=== PATIENT | male | born 1950 ===

== ENCOUNTER 2018-05-13 03:44 | Inpatient (IN) | payer MEDICARE, OTHER ==
--- NOTE | 2018-05-13 04:15 | C.PDOC ---
History Of Present Illness 67 y/o male pt with hx of HTN presents to the ER c/o dizziness and light headedness for x8 weeks. Associated sx includes left-sided non-radiating chest pain, nausea and vomiting. Pt was seen x6 days ago twice at [facility] and was discharged home. Pt reports he took 325 mg of aspirin. Pt denies fall, trauma, fever, chills, abdominal pain, SOB and other associated sx and complaints at this time. Time Seen by Provider: 05/13/18 04:14 Chief Complaint (Nursing): Dizziness/Lightheaded History Per: Patient History/Exam Limitations: no limitations Onset/Duration Of Symptoms: Days (x8 weeks) Current Symptoms Are (Timing): Still Present Past Medical History Reviewed: Historical Data, Nursing Documentation, Vital Signs Vital Signs: Last Vital Signs Temp 97.6 F 05/13/18 03:45 Pulse 51 L 05/13/18 03:45 Resp 16 05/13/18 03:45 BP 165/85 H 05/13/18 03:45 Pulse Ox 100 05/13/18 03:45 Family History: States: No Known Family Hx - Social History Hx Alcohol Use: No Hx Substance Use: No Review Of Systems Constitutional: Negative for: Fever, Chills, Other (fall and trauma) Cardiovascular: Positive for: Chest Pain, Light Headedness Respiratory: Negative for: Shortness of Breath Gastrointestinal: Positive for: Nausea, Vomiting. Negative for: Abdominal Pain Genitourinary: Negative for: Dysuria, Frequency Musculoskeletal: Negative for: Neck Pain, Back Pain Neurological: Positive for: Dizziness Physical Exam - Physical Exam Appears: Non-toxic, No Acute Distress Skin: Normal Color, Warm, Dry Head: Normacephalic Eye(s): bilateral: Normal Inspection, PERRL, EOMI Nose: Normal Oral Mucosa: Moist Throat: Normal, No Erythema, No Exudate Neck: Trachea Midline, Supple, Other (no meningeal sign; negative kernig's and brudzinski's) Chest: Symmetrical Cardiovascular: Rhythm Regular, No Friction Rub Respiratory: No Rales, No Rhonchi, No Wheezing Gastrointestinal/Abdominal: Normal Exam, Soft, No Tenderness, No Organomegaly, No Mass, No Distention, No Guarding Back: Normal Inspection, No CVA Tenderness, No Vertebral Tenderness Extremity: Bilateral: Atraumatic, Normal Color And Temperature, Normal ROM Pulses: Left Dorsalis Pedis: Normal (2+), Right Dorsalis Pedis: Normal (2+) Neurological/Psych: Oriented x3, Normal Speech, Normal Cognition, Normal Cranial Nerves, No Cerebellar Signs, Normal Motor ED Course And Treatment - Laboratory Results Result Diagrams: 05/13/18 04:31 05/13/18 04:31 O2 Sat by Pulse Oximetry: 100 (RA) Pulse Ox Interpretation: Normal Medical Decision Making Medical Decision Makin yr old male p/w dizziness x8d, constant, along with left sided chest pain. Pt was seen at x2 [place] hospitals and d/c. He notes after being d/c continued n/v. No abdominal pain. Non-ttp on exam. No abnl neurological signs on exam but given recurrent n/v and dizziness will likely require imaging. plans: -- chem labs -- blood work -- CXR -- CT head -- IV fluids -- antivert -- reglan 53, NSR, no stemi 0620 labs largely unremarkable trop unremarkable pending CT paged DR. Senior for obs as pt still notes feeling dizzy despite meclizine and fluids. 0640 appreciate consult w/ Dr. Senior: to admit to his service Pt in NAD, agreeable to plan CTH unremarkable Disposition - Disposition Disposition Time: 06:39 Condition: GOOD Forms: [facility] (Slovenian) - Clinical Impression Clinical Impression: Dizziness - Scribe Statement The provider has reviewed the documentation as recorded by the Scribnicole Potter Do Provider Attestation: All medical record entries made by the Scribe were at my direction and personally dictated by me. I have reviewed the chart and agree that the record accurately reflects my personal performance of the history, physical exam, medical decision making, and the department course for this patient. I have also personally directed, reviewed, and agree with the discharge instructions and disposition.
[2018-05-13 04:36] LABS: BASO % 0.3 % (0.0-2.0); EOS % 0.5 % (0.0-4.0); HEMOGLOBIN 13.8 g/dL (12.0-18.0); LYMPH # 1.3 K/uL (1.0-4.3); MEAN CELL VOLUME 93.2 fL (80.0-94.0); MEAN CORPUSCULAR HEMOGLOBIN 31.2 pg (27.0-31.0); MEAN CORPUSCULAR HGB CONC 33.5 g/dL (33.0-37.0); MEAN PLATELET VOLUME 10.6 fL (7.2-11.7); MONO # 0.5 K/uL (0.0-0.8); MONO % 7.5 % (0.0-10.0); NEUT # 4.6 K/uL (1.8-7.0); NEUT % 71.7 % (50.0-75.0); RBC 4.44 Mil/uL (4.40-5.90); RED CELL DISTRIBUTION WIDTH 12.7 % (11.5-14.5); WHITE BLOOD COUNT 6.4 K/uL (4.8-10.8)
[2018-05-13 04:46] LABS: ALB/GLOB RATIO 1.5 (1.0-2.1); ALBUMIN 4.3 g/dL (3.5-5.0); ALT/SGPT 22 U/L (21-72); AST/SGOT 23 U/L (17-59); BLOOD UREA NITROGEN 17 mg/dL (9-20); CALCIUM 9.7 mg/dl (8.6-10.4); GFR NON-AFRICAN AMERICAN > 60
[2018-05-13] MEDS ORDERED: Sodium Chloride 0.9% 1,000 ML ONE (05:42)
[2018-05-13] MEDS: Sodium Chloride 0.9% 1,000 ML IV SCH ×2 (05:54→15:30)
--- NOTE | 2018-05-13 08:36 | CT ---
Date of service: 05/13/2018 PROCEDURE: CT HEAD WITHOUT CONTRAST. HISTORY: dizzy COMPARISON: None available. TECHNIQUE: Axial computed tomography images were obtained through the head/brain without intravenous contrast. Radiation dose: Total exam DLP = 1030.55 mGy-cm. This CT exam was performed using one or more of the following dose reduction techniques: Automated exposure control, adjustment of the mA and/or kV according to patient size, and/or use of iterative reconstruction technique. FINDINGS: HEMORRHAGE: No intracranial hemorrhage. BRAIN: No mass effect or edema. Mild white matter changes likely represent chronic microvascular ischemic disease. VENTRICLES: Unremarkable. No hydrocephalus. CALVARIUM: Unremarkable. PARANASAL SINUSES: There is a complete opacification of the left frontal sinus associated with focal defect in the anterior aspect of the frontal bone. Mucosal thickening is also noted in the ethmoids sinuses. MASTOID AIR CELLS: Unremarkable as visualized. No inflammatory changes. OTHER FINDINGS: None. IMPRESSION: Complete opacification of the left frontal sinus associated with focal defect in the anterior aspect of the frontal bone. Daily for sinusitis. No evidence of acute intracranial hemorrhage mass effect or midline shift. Preliminary report was submitted by [facility] Radiology contains concordant findings.
--- NOTE | 2018-05-13 11:10 | RAD ---
Date of service: 05/13/2018 HISTORY: cp COMPARISON: No prior similar study available for comparison TECHNIQUE: 1 view obtained. FINDINGS: LUNGS: Heterogeneous opacity at the lung apices may represent scar tissue from prior infection or inflammatory process. Hyperinflation of the lungs is noted. PLEURA: No significant pleural effusion identified, no pneumothorax apparent. CARDIOVASCULAR: No aortic atherosclerotic calcification present. Normal cardiac size. No pulmonary vascular congestion. OSSEOUS STRUCTURES: No significant abnormalities. VISUALIZED UPPER ABDOMEN: Normal. OTHER FINDINGS: None. IMPRESSION: Heterogeneous opacity at the lung apices likely represents scar tissue. Mild emphysema.
[2018-05-13 15:59] VITALS: RESP 20
[2018-05-14] MEDS: Sodium Chloride 0.9% 1,000 ML IV SCH ×3 (00:15→10:52)
--- NOTE | 2018-05-14 18:07 | HP ---
HISTORY OF PRESENT ILLNESS: A 67-year old male history of ____ disease, chief complaint dizzness. Patient came to the ER, advised admission. PHYSICAL EXAMINATION: GENERAL: The patient is awake, alert and oriented. VITAL SIGNS: Temperature 98, pulse 90. HEENT: Within normal limits. NECK: Supple. CHEST: Symmetrical. HEART: Regular. ABDOMEN: Soft. EXTREMITIES: No edema. IMPRESSION AND PLAN: The patient bed rest. Neuro check. Filipe Senior MD
[2018-05-15] MEDS: Sodium Chloride 0.9% 1,000 ML IV SCH ×2 (03:27→09:03)
--- NOTE | 2018-05-15 07:08 | CP.PCM.PN ---
Subjective - Date & Time of Evaluation Date of Evaluation: 05/15/18 Time of Evaluation: 07:08 - Subjective Subjective: Medicine Progress Note - Dr Senior's service Patient is a 67 year old male with past medical history of metastatic prostate cancer, DM and hypertension who presented to the emergency department for intractable dizziness. Patient states that the dizziness started 9 days ago and has been associated with multiple episodes of nausea and vomiting. He was seen the in the emergency department twice last week for the same complaint. He also admits to decreased hearing in the left ear. He denies any falls but states that he feels unsteady. Yesterday he reported that the dizziness had improved however today he says that it returned. Allergies: Penicillin Medications: Metformin 1000mg PO BID, Bicalutamide 50mg PO daily Medical History: DM, HTN, Prostate CA Surgical History: Bilateral inguinal hernia repair Social History: Former smoker quit 3 months ago, denies alcohol, tobacco use Family History: Mother - vertigo Objective - Vital Signs/Intake and Output Vital Signs (last 24 hours): Temp Pulse Resp BP Pulse Ox 98.3 F 59 L 20 150/80 99 05/15/18 00:00 05/15/18 00:00 05/15/18 00:00 05/15/18 00:00 05/15/18 00:00 Intake and Output: 05/15/18 05/15/18 06:59 18:59 Intake Total 990 Balance 990 - Medications Medications: Current Medications Sodium Chloride (Sodium Chloride 0.9%) 1,000 mls @ 100 mls/hr IV .Q10H [facility] Last Admin: 05/15/18 03:27 Dose: 100 mls/hr - Labs Labs: 05/13/18 04:31 05/13/18 04:31 - Constitutional Appears: Non-toxic, No Acute Distress - Head Exam Head Exam: ATRAUMATIC, NORMAL INSPECTION, NORMOCEPHALIC - Eye Exam Eye Exam: EOMI, Normal appearance - ENT Exam ENT Exam: Mucous Membranes Moist - Respiratory Exam Respiratory Exam: Clear to Ausculation Bilateral, NORMAL BREATHING PATTERN. absent: Decreased Breath Sounds, Rales, Rhonchi, Wheezes - Cardiovascular Exam Cardiovascular Exam: REGULAR RHYTHM, +S1, +S2 - GI/Abdominal Exam GI & Abdominal Exam: Soft. absent: Guarding, Rigid, Tenderness - Extremities Exam Extremities Exam: Normal Inspection. absent: Calf Tenderness - Neurological Exam Neurological Exam: Alert, Awake, Oriented x3 - Psychiatric Exam Psychiatric exam: Normal Affect, Normal Mood - Skin Skin Exam: Dry, Normal Color, Warm Assessment and Plan - Assessment and Plan (Free Text) Assessment: Patient is a 67 year old male with past medical history of metastatic prostate cancer, DM, HTN who presented with intractable dizziness with associated nausea and vomiting. Dizziness, r/o cardioneurogenic causes -Stable afebrile -Troponin negative x 1 -Carotid duplex and echocardiogram ordered -Orthostatics were positive, could be due to prostate medication -Continue IV fluid hydration -Continue physical therapy -Patient will need outpatient ENT evaluation Imaging: CT head: Complete opacification of the left frontal sinus associated with focal defect in the anterior aspect of the frontal bone. Daily for sinusitis. No evidence of acute intracranial hemorrhage mass effect or midline shift. History of Hypertension -Orthostatics were positive -Continue 1/2 NS at 100cc/hr -Continue to monitor DM -Metformin on hold for now -Monitor accuchecks GI/DVT ppx: No GI ppx indicated at this time Lovenox 40mg SC daily DISPO: Patient with unsteady gait 2/2 dizziness. Continue IV fluid hydration and PT recommendations. Likely DC home tomorrow with ENT follow up. Plan discussed with Dr Parrish Fernandes DO PGY-2
[2018-05-15] MEDS: Sodium Chloride 0.45% 1,000 ML IV SCH (14:40)
[2018-05-15] MEDS: (Novolog) Insulin Aspart, Recombinant 100 u/ml 10 ml vial SC SCH (22:12)
[2018-05-16 07:25] LABS: BASO % 0.4 % (0.0-2.0); EOS # 0.2 K/uL (0.0-0.7); EOS % 3.3 % (0.0-4.0); HEMOGLOBIN 13.8 g/dL (12.0-18.0); LYMPH # 1.7 K/uL (1.0-4.3); LYMPH % 30.3 % (20.0-40.0); MEAN CELL VOLUME 92.4 fL (80.0-94.0); MEAN CORPUSCULAR HEMOGLOBIN 31.9 pg (27.0-31.0); MEAN CORPUSCULAR HGB CONC 34.5 g/dL (33.0-37.0); MEAN PLATELET VOLUME 11.1 fL (7.2-11.7); MONO # 0.6 K/uL (0.0-0.8); MONO % 10.4 % (0.0-10.0); NEUT # 3.1 K/uL (1.8-7.0); NEUT % 55.6 % (50.0-75.0); NRBC % 0.1 % (0.0-2.0); RBC 4.32 Mil/uL (4.40-5.90); RED CELL DISTRIBUTION WIDTH 12.8 % (11.5-14.5); WHITE BLOOD COUNT 5.6 K/uL (4.8-10.8)
[2018-05-16 08:07] LABS: ALB/GLOB RATIO 1.6 (1.0-2.1); ALBUMIN 3.9 g/dL (3.5-5.0); ALT/SGPT 13 U/L (21-72); AST/SGOT 28 U/L (17-59); BLOOD UREA NITROGEN 10 mg/dL (9-20); CALCIUM 9.1 mg/dl (8.6-10.4); GFR NON-AFRICAN AMERICAN > 60; HDL CHOLESTEROL 61 mg/dL (30-70)
[2018-05-16 08:18] LABS: LDL CHOLESTEROL 90 mg/dL (0-129)
[2018-05-16] MEDS: (Novolog) Insulin Aspart, Recombinant 100 u/ml 10 ml vial SC SCH ×4 (08:20→22:00)
[2018-05-16] MEDS: Enoxaparin 40 mg Syringe SC SCH (09:56)
[2018-05-16] MEDS ORDERED: Pneumococcal 23-Valent Vaccine IM ONE (10:00)
--- NOTE | 2018-05-16 11:14 | VASCLAB ---
Date of service: 05/15/2018 PROCEDURE: Carotid Duplex Exam. HISTORY: dizziness COMPARISON: None available. TECHNIQUE: Grayscale and duplex Doppler evaluation of the cervical carotid and vertebral arteries were performed. The common carotid, carotid bifurcations and cervical Internal Carotid Artery (ICA) and proximal External Carotid Artery (ECA) were evaluated. The vertebral arteries were evaluated for gross patency and flow direction. Report prepared by Paul Dennison, BS, RVT FINDINGS: RIGHT CAROTID ARTERIES: 1. Common Carotid Artery: No significant focal plaque formation of the right common carotid artery. Maximum Peak Systolic velocity: 72 cm/sec: End-diastolic velocity 17 cm/sec. 2. Carotid Bifurcation: plaque formation. Maximum Peak Systolic velocity: 60 cm/sec: End-diastolic velocity 15 cm/sec. 3. Internal Carotid Artery: Plaque description: 3.1. Proximal Segment: Peak systolic velocity 60 cm/sec: End-diastolic velocity 16 cm/sec - % stenosis 0-15% 3.2. Middle Segment: Peak systolic velocity 44 cm/sec: End-diastolic velocity 15 cm/sec - % stenosis 0-15% 3.3. Distal Segment: Peak systolic velocity 58 cm/sec: End-diastolic velocity 20 cm/sec - % stenosis 0-15% 4. External Carotid Artery: No significant focal plaque formation. Peak systolic velocity 81 cm/sec 5. ICA/CCA Ratio: 0.8 LEFT CAROTID ARTERIES: 1. Common Carotid Artery: No significant focal plaque formation of the left common carotid artery. Maximum Peak Systolic velocity: 75 cm/sec: End-diastolic velocity 15 cm/sec. 2. Carotid Bifurcation: plaque formation. Maximum Peak Systolic velocity: 73 cm/sec: End-diastolic velocity 16 cm/sec. 3. Internal Carotid Artery: Plaque description: 3.1. Proximal Segment: Peak systolic velocity 53 cm/sec: End-diastolic velocity 15 cm/sec - % stenosis 0-15% 3.2. Middle Segment: Peak systolic velocity 75 cm/sec: End-diastolic velocity 26 cm/sec - % stenosis 0-15% 3.3. Distal Segment: Peak systolic velocity 78 cm/sec: End-diastolic velocity 28 cm/sec - % stenosis 0-15% 4. External Carotid Artery: No significant focal plaque formation. Peak systolic velocity 90 cm/sec 5. ICA/CCA Ratio: 1.0 VERTEBRAL ARTERIES: 1. Right Vertebral Artery: The right vertebral artery flow direction is antegrade. 2. Left Vertebral Artery: The left vertebral artery flow direction is antegrade. OTHER FINDINGS: 1. Right Brachial Blood pressure: 130 mmHg. 2. Left Brachial Blood pressure: 134 mmHg. 3. No atherosclerotic calcification present IMPRESSION: RIGHT: Duplex scan does not suggest hemodynamically significant stenosis of the right extracranial carotid arteries. LEFT: Duplex scan does not suggest hemodynamically significant stenosis of the left extracranial carotid arteries.
[2018-05-16] MEDS: Sodium Chloride 0.45% 1,000 ML IV SCH (11:57)
--- NOTE | 2018-05-16 13:21 | CP.PCM.PN ---
Subjective - Date & Time of Evaluation Date of Evaluation: 05/16/18 Time of Evaluation: 13:18 - Subjective Subjective: Patient seen and examined at bedside. NO overnight events reported. Patient still reports Dizziness and nausea. He denies any chest pain, SOB, abdominal pain, changes in bowel habits or urinary symptoms. Per Nurse, patient stated in the afternoon if he could get an injection to . When patient was questioned regarding this he stated that he was joking and denied any suicidal or homicidal ideation. Objective - Vital Signs/Intake and Output Vital Signs (last 24 hours): Temp Pulse Resp BP Pulse Ox 97.5 F L 60 20 175/79 H 98 05/16/18 07:57 05/16/18 07:57 05/16/18 07:57 05/16/18 07:57 05/16/18 12:20 Intake and Output: 05/16/18 05/16/18 06:59 18:59 Intake Total 1100 1000 Output Total 700 Balance 400 1000 - Medications Medications: Current Medications Enoxaparin Sodium (Lovenox) 40 mg SC DAILY [facility] Last Admin: 05/16/18 09:56 Dose: 40 mg Sodium Chloride (Sodium Chloride 0.45%) 1,000 mls @ 100 mls/hr IV .Q10H [facility] Last Admin: 05/16/18 11:57 Dose: 100 mls/hr Insulin Aspart (Novolog) 0 unit SC ACHS [facility]; Protocol Last Admin: 05/16/18 11:55 Dose: 2 units - Labs Labs: 05/16/18 07:04 05/16/18 07:04 - Constitutional Appears: Non-toxic, No Acute Distress - Head Exam Head Exam: ATRAUMATIC, NORMAL INSPECTION, NORMOCEPHALIC - Eye Exam Eye Exam: EOMI, Normal appearance. absent: Scleral icterus - ENT Exam ENT Exam: Mucous Membranes Moist - Respiratory Exam Respiratory Exam: Clear to Ausculation Bilateral - Cardiovascular Exam Cardiovascular Exam: RRR, +S1, +S2 - GI/Abdominal Exam GI & Abdominal Exam: Soft, Normal Bowel Sounds. absent: Tenderness - Extremities Exam Extremities Exam: Normal Capillary Refill. absent: Pedal Edema - Neurological Exam Neurological Exam: Alert, Awake, Oriented x3 - Psychiatric Exam Psychiatric exam: Anxious, Depressed (D), Normal Affect. absent: Homicidal Ideation, Suicidal Ideation - Skin Skin Exam: Normal Color, Warm Assessment and Plan - Assessment and Plan (Free Text) Assessment: Patient is a 67 year old male with past medical history of metastatic prostate cancer, DM, HTN who presented with intractable dizziness with associated nausea and vomiting. Plan: Dizziness, r/o cardioneurogenic causes CT head: Complete opacification of the left frontal sinus associated with focal defect in the anterior aspect of the frontal bone. Daily for sinusitis. No evidence of acute intracranial hemorrhage mass effect or midline shift. -Stable afebrile -Troponin negative x 1 -Carotid duplex and echocardiogram ordered -Orthostatics were positive, could be due to prostate medication -Continue IV fluid hydration -Continue physical therapy -Patient will need outpatient ENT evaluation Mgmt: Start Meclizine 25mg PO Daily Start Trimethobenzamide 300mg PO Q8 PRN. Zofran and Reglan given once today with miniminal Relief. Sinusitis (Frontal) CT head: Complete opacification of the left frontal sinus associated with focal defect in the anterior aspect of the frontal bone. Daily for sinusitis. No evidence of acute intracranial hemorrhage mass effect or midline shift. Mgmt: Start Fluticasone 1 spray in each nostril Daily Suicidal ideation Per Nurse, patient stated that he wanted an injection to kill himself. Per nurse, he sounded serious. When I asked the patient he stated he was joking -Psychiatry Consult (Dr. Bradshaw), f/u Recs. History of Hypertension -Orthostatics were positive -Continue 1/2 NS at 100cc/hr -Continue to monitor DM -Metformin on hold for now -Monitor accuchecks -Samantha GI/DVT ppx: No GI ppx indicated at this time Lovenox 40mg SC daily DISPO: Patient with unsteady gait 2/2 dizziness. Continue IV fluid hydration and PT recommendations. Patient was to be discharged home today but asked for an injection to . Psych consult put it. Patient to follow up with ENT when DC'd. Plan discussed with Dr Parrish Blevins DO PGY-2
[2018-05-16] MEDS: Fluticasone Nasal 50 mcg/Spray NAS SCH (17:12)
--- NOTE | 2018-05-16 18:46 | CARD ---
APPROVED REPORT Date of service: 05/16/2018 EXAM: Two-dimensional and M-mode echocardiogram with Doppler, color Doppler with saline bubble. Other Information Quality : GoodRhythm : INDICATION Dizziness and Vertigo Echo Enhancing Agent Indication: Rule Out Septal Defect Agent/Amount Used: Agitated Saline RISK FACTORS Hypertension 2D DIMENSIONS IVSd0.8 (0.7-1.1cm)LVDd4.5 (3.9-5.9cm) PWd0.9 (0.7-1.1cm)LA [id number] (18-58mL) LVDs2.8 (2.5-4.0cm)FS (%) 37.7 % LVEF (%)68.0 (>50%)LVEF (John's)61.22 % IVC0.00 cm M-Mode DIMENSIONS Left Atrium (MM)4.01 (2.5-4.0cm)Aortic Root3.25 (2.2-3.7cm) Aortic Cusp Exc.2.16 (1.5-2.0cm) Mitral Valve MV E Hfapghsd78.9cm/sMV A Vzceqfba54.5cm/sE/A ratio1.1 TEAA676.94 cm/s TDI Lateral E' Peak V9.06cm/sMedial E' Peak V6.09cm/sE/Lateral E'9.2 E/Medial E'13.6 Tricuspid Valve TR Peak Botrjkbb260wd/sTR Peak Gr.[id number] LEFT VENTRICLE The left ventricle is normal size. There is normal left ventricular wall thickness. The left ventricular function is normal. The left ventricular ejection fraction is within the normal range. 61% No regional wall motion abnormalities noted. The left ventricular diastolic function is normal. No left ventricle thrombus noted on this study. There is no ventricular septal defect visualized. There is no left ventricular aneurysm. There is no mass noted in the left ventricle. RIGHT VENTRICLE The right ventricle is normal size. There is normal right ventricular wall thickness. The right ventricular systolic function is normal. ATRIA The left atrium size is normal. The right atrium size is normal. The interatrial septum is intact with no evidence for an atrial septal defect. AORTIC VALVE The aortic valve is normal in structure and function. No aortic regurgitation is present. There is no aortic valvular stenosis. There is no aortic valvular vegetation. MITRAL VALVE The mitral valve is normal in structure and function. There is no evidence of mitral valve prolapse. There is no mitral valve stenosis. There is mild mitral valve regurgitation noted. TRICUSPID VALVE The tricuspid valve is normal in structure and function. There is no tricuspid valve regurgitation noted. There is no tricuspid valve prolapse or vegetation. There is no tricuspid valve stenosis. PULMONIC VALVE The pulmonary valve is normal in structure and function. There is no pulmonic valvular regurgitation. There is no pulmonic valvular stenosis. GREAT VESSELS The aortic root is normal in size. The ascending aorta is normal in size. The pulmonary artery is normal. The IVC is normal in size and collapses >50% with inspiration. PERICARDIAL EFFUSION The pericardium appears normal. There is no pleural effusion. <Conclusion> Normal Study
[2018-05-17 07:00] LABS: BASO % 0.5 % (0.0-2.0); EOS # 0.2 K/uL (0.0-0.7); EOS % 4.2 % (0.0-4.0); LYMPH # 2.2 K/uL (1.0-4.3); LYMPH % 38.5 % (20.0-40.0); MEAN CELL VOLUME 92.3 fL (80.0-94.0); MEAN CORPUSCULAR HGB CONC 33.6 g/dL (33.0-37.0); MEAN PLATELET VOLUME 11.2 fL (7.2-11.7); MONO # 0.5 K/uL (0.0-0.8); MONO % 9.8 % (0.0-10.0); NEUT # 2.6 K/uL (1.8-7.0); NRBC % 0.1 % (0.0-2.0); RBC 4.52 Mil/uL (4.40-5.90); RED CELL DISTRIBUTION WIDTH 13.2 % (11.5-14.5); WHITE BLOOD COUNT 5.6 K/uL (4.8-10.8)
[2018-05-17] MEDS: Sodium Chloride 0.45% 1,000 ML IV SCH ×3 (07:02→16:00)
[2018-05-17 07:39] LABS: ALB/GLOB RATIO 1.5 (1.0-2.1); ALBUMIN 3.9 g/dL (3.5-5.0); ALT/SGPT 10 U/L (21-72); AST/SGOT 23 U/L (17-59); BLOOD UREA NITROGEN 12 mg/dL (9-20); CALCIUM 9.4 mg/dl (8.6-10.4); GFR NON-AFRICAN AMERICAN > 60
--- NOTE | 2018-05-17 08:28 | CP.PCM.PN ---
Subjective - Date & Time of Evaluation Date of Evaluation: 05/17/18 Time of Evaluation: 08:28 - Subjective Subjective: Medicine Progress Note - Dr Senior's service Patient seen and examined at bedside. Per nursing no acute events overnight. Patient is doing well, states that dizziness has resolved. He is ambulating and tolerating diet. States that he is not suicidal. Offers no other complaints at this time. Objective - Vital Signs/Intake and Output Vital Signs (last 24 hours): Temp Pulse Resp BP Pulse Ox 98.1 F 60 20 129/79 96 05/17/18 07:00 05/17/18 07:00 05/17/18 07:00 05/17/18 07:00 05/17/18 07:00 Intake and Output: 05/17/18 05/17/18 06:59 18:59 Intake Total 1100 400 Output Total 600 Balance 500 400 - Medications Medications: Current Medications Enoxaparin Sodium (Lovenox) 40 mg SC DAILY [facility] Last Admin: 05/16/18 09:56 Dose: 40 mg Fluticasone Propionate (Flonase) 1 spr ETHAN DAILY [facility] Last Admin: 05/16/18 17:12 Dose: 1 spr Sodium Chloride (Sodium Chloride 0.45%) 1,000 mls @ 100 mls/hr IV .Q10H [facility] Last Admin: 05/17/18 07:03 Dose: 100 mls/hr Insulin Aspart (Novolog) 0 unit SC ACHS [facility]; Protocol Last Admin: 05/16/18 16:30 Dose: Not Given Meclizine HCl (Antivert) 25 mg PO DAILY [facility] Last Admin: 05/16/18 17:12 Dose: 25 mg Ondansetron HCl (Zofran Odt) 4 mg PO Q6H PRN PRN Reason: Nausea/Vomiting - Labs Labs: 05/17/18 06:30 05/17/18 06:30 - Additional Findings Additional findings: - Constitutional Appears: Non-toxic, No Acute Distress - Head Exam Head Exam: ATRAUMATIC, NORMAL INSPECTION, NORMOCEPHALIC - Eye Exam Eye Exam: EOMI, Normal appearance. absent: Scleral icterus - ENT Exam ENT Exam: Mucous Membranes Moist - Respiratory Exam Respiratory Exam: Clear to Ausculation Bilateral - Cardiovascular Exam Cardiovascular Exam: RRR, +S1, +S2 - GI/Abdominal Exam GI & Abdominal Exam: Soft, Normal Bowel Sounds. absent: Tenderness - Extremities Exam Extremities Exam: Normal Capillary Refill. absent: Pedal Edema - Neurological Exam Neurological Exam: Alert, Awake, Oriented x3 - Psychiatric Exam Psychiatric exam: Normal Affect. absent: Homicidal Ideation, Suicidal Ideation - Skin Skin Exam: Normal Color, Warm Assessment and Plan - Assessment and Plan (Free Text) Assessment: Patient is a 67 year old male with past medical history of metastatic prostate cancer, DM, HTN who presented with intractable dizziness with associated nausea and vomiting. Plan: Dizziness, r/o cardioneurogenic causes CT head: Complete opacification of the left frontal sinus associated with focal defect in the anterior aspect of the frontal bone. Daily for sinusitis. No evidence of acute intracranial hemorrhage mass effect or midline shift. -Stable afebrile -Troponin negative x 1 -Carotid duplex and echocardiogram ordered -Orthostatics were positive, could be due to prostate medication -Continue physical therapy -Patient will need outpatient ENT evaluation -Continue Meclizine 25mg PO daily Sinusitis (Frontal) CT head: Complete opacification of the left frontal sinus associated with focal defect in the anterior aspect of the frontal bone. Daily for sinusitis. No evidence of acute intracranial hemorrhage mass effect or midline shift. -Continue Fluticasone 1 spray in each nostril Daily Suicidal ideation Per Nurse, patient stated that he wanted an injection to kill himself. Per nurse, he sounded serious. When I asked the patient he stated he was joking -Psychiatry Consult (Dr. Bradshaw), f/u Recs. History of Hypertension -Orthostatics were positive -Continue 1/2 NS at 100cc/hr -Continue to monitor DM -Metformin on hold for now -Monitor accuchecks -ISS GI/DVT ppx: No GI ppx indicated at this time Lovenox 40mg SC daily DISPO: Patient is medically stable for discharge home. Awaiting psych clearance. Patient to follow up with ENT when DC'd. Plan discussed with Dr Parrish Fernandes DO PGY-2
[2018-05-17] MEDS: (Novolog) Insulin Aspart, Recombinant 100 u/ml 10 ml vial SC SCH ×5 (10:01→21:33)
[2018-05-17] MEDS: Fluticasone Nasal 50 mcg/Spray NAS SCH (10:26)
[2018-05-17] MEDS: Enoxaparin 40 mg Syringe SC SCH (10:26)
--- NOTE | 2018-05-17 13:59 | PCM.PSYCH ---
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 Patient admitted to the hospital on 05/13 for intractable dizziness with associated nausea and vomiting. Patient is consulted for saying to nurse " do you have an injection to " yesterday. Patient states that he has never attempted suicide in the past, or has not seen a psychiatrist in the past for any psychiatric issues, or takes psych meds. Patient has never been hospitalized for psych issues. Patient denies suicidal or homicidal ideation at this time. Patient denies feeling down, patient admits to having difficulty sleeping, but denies any diminished concentration, appetite or interest in doing his daily activities. Denies visual or auditory hallucinations, or any racing thoughts. Patient denies current alcohol, tobacco or drug use. Patient used to smoke about 3-4 cigarettes daily, quitted about 4 months ago when he was diagnosed of prostate cancer. Patient was superficial cooperative but guarded about the details. He appeared depressed, isolated and withdrawn. He was irritable and agitated throughout the interview. He demanded to be discharged, and refused any suicidal ideation. Pmhx: Prostate CA, DM, HTN Shx: former smoker, quitted 4 months ago, denies alcohol or drug use Psych hx: denies Psych fam hx: denies Current Medications: Active Medications Generic Name Dose Route Start Last Admin Trade Name Freq PRN Reason Stop Dose Admin Enoxaparin Sodium 40 mg 05/16/18 10:00 05/17/18 10:26 Lovenox SC 40 mg DAILY MACIE Administration Fluticasone Propionate 1 spr 05/16/18 14:00 05/17/18 10:26 Flonase ETHAN 1 spr DAILY MACIE Administration Sodium Chloride 1,000 mls @ 100 mls/hr 05/15/18 14:00 05/17/18 07:03 Sodium Chloride 0.45% IV 100 mls/hr .Q10H MACIE Administration Insulin Aspart 0 unit 05/15/18 22:00 05/17/18 12:38 Novolog SC 1 units ACHS MACIE Administration Protocol Meclizine HCl 25 mg 05/16/18 14:00 05/17/18 10:26 Antivert PO 25 mg DAILY MACIE Administration Ondansetron HCl 4 mg 05/16/18 15:30 05/17/18 10:26 Zofran Odt PO 4 mg Q6H PRN Administration Nausea/Vomiting Past Psychiatric History - Past Psychiatric History Pertinent Medical Hx (Current Medical&Sleep Prob, Allergies): Allergies Allergy/AdvReac Type Severity Reaction Status Date / Time Penicillins Allergy Verified 05/13/18 03:52 Ondansetron HCl [Zofran] 4 mg PO Q6H PRN #28 tablet 05/16/18 amLODIPine [Norvasc] 5 mg PO DAILY #14 tab 05/16/18 Fluticasone Propionate [Flonase] 1 spr ETHAN DAILY #1 bottle 05/17/18 Review of Systems - Psychiatric Psychiatric: Abnormal Sleep Pattern, Irritability. absent: Anhedonia, Anxiety, Auditory Hallucinations, Change in Appetite, Depression, Difficulty Concentrating, Hallucinations, Homicidal Ideation, Suicidal Ideation, Visual Hallucinations Mental Status Examination - Personal Presentation Personal Presentation: Looks stated age - Affect Affect: Constricted, Depressed - Motor Activity Motor Activity: Calm - Reliability in Providing Information Reliability in Providing Information: Fair - Speech Speech: Organized - Mood Mood: Depressed - Formal Thought Process Formal Thought Process: No Impairment - Cognitive Functions Orientation: Person, Place, Situation, Time Sensorium: Alert Attention/Concentration: Attentive Abstract Thinking: [place] DSM 5 DX - DSM 5 DSM 5 Diagnosis: Major depressive disorder w/o Psychotic issues - Recommended/Plan of Treatment Treatment Recommendations and Plan of Treatment: Patient offered medication for depression, however patient refuses request for [facility] screening pending - will follow up evaluation medication as needed for sleep aftercare discussed Plan d/w Dr Augustine uLis, PGY-1
[2018-05-17 20:22] LABS: BARBITURATES, UR NEGATIVE (NEGATIVE); BENZODIAZEPINES, UR NEGATIVE (NEGATIVE); OPIATES, UR NEGATIVE (NEGATIVE); PHENCYCLIDINE, UR NEGATIVE (NEGATIVE)
[2018-05-18 02:35] LABS: URINE BACTERIA RARE (<OCC); URINE BILIRUBIN NEGATIVE (NEGATIVE); URINE BLOOD NEGATIVE (NEGATIVE); URINE CLARITY Clear (Clear); URINE COLOR Yellow (YELLOW); URINE GLUCOSE (UA) 3+ mg/dL (Normal); URINE LEUKOCYTE ESTERASE NEG Leu/uL (Negative); URINE PROTEIN NEGATIVE (NEGATIVE)
[2018-05-18] MEDS: Sodium Chloride 0.45% 1,000 ML IV SCH ×2 (04:20→13:00)
[2018-05-18 06:25] LABS: BASO % 0.7 % (0.0-2.0); EOS # 0.4 K/uL (0.0-0.7); HEMOGLOBIN 14.2 g/dL (12.0-18.0); LYMPH # 2.8 K/uL (1.0-4.3); LYMPH % 40.2 % (20.0-40.0); MEAN CELL VOLUME 92.6 fL (80.0-94.0); MEAN CORPUSCULAR HEMOGLOBIN 31.7 pg (27.0-31.0); MEAN CORPUSCULAR HGB CONC 34.2 g/dL (33.0-37.0); MEAN PLATELET VOLUME 10.8 fL (7.2-11.7); MONO # 0.8 K/uL (0.0-0.8); NEUT # 2.9 K/uL (1.8-7.0); NEUT % 42.1 % (50.0-75.0); NRBC % 0.1 % (0.0-2.0); RBC 4.48 Mil/uL (4.40-5.90); RED CELL DISTRIBUTION WIDTH 12.9 % (11.5-14.5); WHITE BLOOD COUNT 6.9 K/uL (4.8-10.8)
[2018-05-18 06:38] LABS: ALB/GLOB RATIO 1.6 (1.0-2.1); ALT/SGPT 17 U/L (21-72); AST/SGOT 18 U/L (17-59); BLOOD UREA NITROGEN 15 mg/dL (9-20); CALCIUM 9.5 mg/dl (8.6-10.4); GFR NON-AFRICAN AMERICAN > 60
[2018-05-18 07:52] VITALS: BP 140/86; PULSE 80; TEMP 98; O2SAT 98
[2018-05-18] MEDS: (Novolog) Insulin Aspart, Recombinant 100 u/ml 10 ml vial SC SCH ×2 (08:32→12:30)
[2018-05-18] MEDS: Enoxaparin 40 mg Syringe SC SCH (09:31)
[2018-05-18] MEDS: Fluticasone Nasal 50 mcg/Spray NAS SCH (09:31)
--- NOTE | 2018-05-18 11:41 | PCM.PYCHPN ---
Psychiatric Progress Note - Psychiatric Progress Note Patient seen today, length of contact: 15 min Medication Change: Yes Medical Record Reviewed: Yes Mental Status Examination - Cognitive Function Orientation: Person, Place, Situation, Time Memory: Intact Attention: WNL Concentration: WNL Association: WNL Fund of Knowledge: WNL - Mood Mood: Depressed - Affect Affect: Constricted, Depressed - Formal Thought Process Formal Thought Process: No Impairment - Suicidal Ideation Suicidal Ideation: No - Homicidal Ideation Homicidal Ideation: No Goal/Treatment Plan - Goal/Treatment Plan Need for Continued Stay: Remain at risks for inpatient hospitalization Progress Toward Problem(s) and Goals/Treatment Plan: Pt psychiatrically stable and cleared for discharge
--- NOTE | 2018-05-18 13:01 | CP.PCM.PN ---
Subjective - Date & Time of Evaluation Date of Evaluation: 05/18/18 Time of Evaluation: 11:00 - Subjective Subjective: patient seen and examined at bedside. He offers no complaints. He denies any suicidal ideation. Dizziness has resolved. 12 point system an reviewed and negative unless otherwise stated. Objective - Vital Signs/Intake and Output Vital Signs (last 24 hours): Temp Pulse Resp BP Pulse Ox 98.0 F 80 20 140/86 98 05/18/18 07:05 05/18/18 07:05 05/18/18 07:05 05/18/18 07:05 05/18/18 07:05 Intake and Output: 05/18/18 05/18/18 06:59 18:59 Intake Total 400 Output Total 600 400 Balance -200 -400 - Medications Medications: Current Medications Enoxaparin Sodium (Lovenox) 40 mg SC DAILY [facility] Last Admin: 05/18/18 09:31 Dose: Not Given Fluticasone Propionate (Flonase) 1 spr ETHAN DAILY [facility] Last Admin: 05/18/18 09:31 Dose: Not Given Hydroxyzine HCl (Atarax) 25 mg PO Q6 PRN PRN Reason: Anxiety Sodium Chloride (Sodium Chloride 0.45%) 1,000 mls @ 100 mls/hr IV .Q10H [facility] Last Admin: 05/18/18 04:20 Dose: Not Given Insulin Aspart (Novolog) 0 unit SC [facility]; Protocol Last Admin: 05/18/18 08:32 Dose: Not Given Meclizine HCl (Antivert) 25 mg PO DAILY [facility] Last Admin: 05/18/18 09:33 Dose: Not Given Mirtazapine (Remeron) 15 mg PO [facility] Last Admin: 05/18/18 00:28 Dose: 15 mg Ondansetron HCl (Zofran Odt) 4 mg PO Q6H PRN PRN Reason: Nausea/Vomiting Last Admin: 05/17/18 10:26 Dose: 4 mg - Labs Labs: 05/18/18 06:10 05/18/18 06:10 - Additional Findings Additional findings: - Constitutional Appears: Non-toxic, No Acute Distress - Head Exam Head Exam: ATRAUMATIC, NORMAL INSPECTION, NORMOCEPHALIC - Eye Exam Eye Exam: EOMI, Normal appearance. absent: Scleral icterus - ENT Exam ENT Exam: Mucous Membranes Moist - Respiratory Exam Respiratory Exam: Clear to Ausculation Bilateral - Cardiovascular Exam Cardiovascular Exam: RRR, +S1, +S2 - GI/Abdominal Exam GI & Abdominal Exam: Soft, Normal Bowel Sounds. absent: Tenderness - Extremities Exam Extremities Exam: Normal Capillary Refill. absent: Pedal Edema - Neurological Exam Neurological Exam: Alert, Awake, Oriented x3 - Psychiatric Exam Psychiatric exam: Anxious, Depressed (D), Normal Affect. absent: Homicidal Ideation, Suicidal Ideation - Skin Skin Exam: Normal Color, Warm Assessment and Plan - Assessment and Plan (Free Text) Assessment: Patient is a 67 year old male with past medical history of metastatic prostate cancer, DM, HTN who presented with intractable dizziness with associated nausea and vomiting. Plan: Dizziness, r/o cardioneurogenic causes CT head: Complete opacification of the left frontal sinus associated with focal defect in the anterior aspect of the frontal bone. Daily for sinusitis. No evidence of acute intracranial hemorrhage mass effect or midline shift. -Stable afebrile -Troponin negative x 1 -Carotid duplex and echocardiogram WNL -Orthostatics were positive, could be due to prostate medication -Continue IV fluid hydration -Continue physical therapy -Patient will need outpatient ENT evaluation Mgmt: Cont. Meclizine 25mg PO Daily Start Trimethobenzamide 300mg PO Q8 PRN. Zofran and Reglan given once today with miniminal Relief. Sinusitis (Frontal) CT head: Complete opacification of the left frontal sinus associated with focal defect in the anterior aspect of the frontal bone. Daily for sinusitis. No evidence of acute intracranial hemorrhage mass effect or midline shift. Mgmt: Start Fluticasone 1 spray in each nostril Daily Suicidal ideation (Resolved) -Psychiatry Consult (Dr. Bradshaw), f/u Recs. History of Hypertension -Orthostatics were positive -Continue 1/2 NS at 100cc/hr -Continue to monitor DM -Metformin on hold for now -Monitor accuchecks -Samantha GI/DVT ppx: No GI ppx indicated at this time Lovenox 40mg SC daily DISPO: Patient stable for discharge per Dr. Senior and per Psych. We will discharge today. Plan discussed with Dr Parrish Blevins DO PGY-2
== END 2018-05-18 17:17 | disposition home or self-care (01) | DRG 149 ==
LOC: C.ER 03:44 → C.9E 06:32 → C.3T 09:06 → OBSVTOIN 05-16 16:54
PROVIDERS: ADMIT Internal Medicine Pulmonary Disease; ATTEND Internal Medicine Pulmonary Disease
DX: R42 Dizziness and giddiness (principal); F32.9 Major depressive disorder, single episode, unspecified; R11.2 Nausea with vomiting, unspecified; E11.9 Type 2 diabetes mellitus without complications; I10 Essential (primary) hypertension; C79.9 Secondary malignant neoplasm of unspecified site; J32.1 Chronic frontal sinusitis; H91.92 Unspecified hearing loss, left ear; Z91.19 Patient's noncompliance with other medical treatment and regimen; Z85.46 Personal history of malignant neoplasm of prostate; Z88.0 Allergy status to penicillin; Z79.84 Long term (current) use of oral hypoglycemic drugs